=== PATIENT | female | born 1990 ===

== ENCOUNTER → 2023-10-30 | Outpatient (CLI) | payer OTHER ==
[2023-11-07 09:36] LABS: HPV GENOTYPE 16 Not Detected; HPV GENOTYPE 18 Not Detected; HPV HIGH RISK Not Detected; HPV SOURCE Not Provided
== END ==
LOC: LAB SHORT 10:10 → LAB 10:10
PROVIDERS: Registered Nurse Community Health
DX: Z12.4 Encounter for screening for malignant neoplasm of cervix (principal)
CPT/HCPCS: 87624; G0123

== ENCOUNTER → 2025-07-29 | Outpatient (CLI) | payer OTHER | LOC: LAB 19:08 → LAB SHORT 19:08 | DX: N39.0 Urinary tract infection, site not specified (principal) | CPT/HCPCS: 87086 ==